=== PATIENT | female | born 1955 | race Hispanic/Latino ===

== ENCOUNTER 2022-04-24 05:07 | Observation (INO) | payer MEDICARE ==
[~2022-04-24] VITALS: Ht 154.9 cm; Wt 84.8 kg
[2022-04-24] MEDS ORDERED: ONDANSETRON HCL INJ 2MG/ML 2ML 2 MG/ML VIAL IV STA (06:02)
[2022-04-24] MEDS ORDERED: SODIUM CHLORIDE 0.9% 500ML 500 ML IV ONE (06:15)
[2022-04-24] MEDS ORDERED: ACETAMINOPHEN 325 MG TAB PO ONE (06:15)
[2022-04-24] MEDS ORDERED: ONDANSETRON HCL INJ 2MG/ML 2ML 2 MG/ML VIAL ONE (06:19)
[2022-04-24] MEDS ORDERED: SODIUM CHLORIDE 0.9% 500ML 500 ML ONE (06:19)
[2022-04-24] MEDS ORDERED: ACETAMINOPHEN 325 MG TAB ONE (06:19)
[2022-04-24] MEDS ORDERED: IOPAMIDOL 370 MG/ML 100 ML INFUS..BTL INJ ONE (06:37)
[2022-04-24] MEDS ORDERED: CEFTRIAXONE 1 GM VIAL ONE (07:20)
[2022-04-24] MEDS ORDERED: SODIUM CHLORIDE FLUSH 10 ML SYR INJ PRN (07:30)
[2022-04-24] MEDS ORDERED: ASPIRIN 81 MG CHEW TAB PO ONE (07:30)
[2022-04-24] MEDS ORDERED: ONDANSETRON HCL INJ 2MG/ML 2ML 2 MG/ML VIAL IV PRN (07:30)
[2022-04-24] MEDS ORDERED: ASPIRIN 325 MG TAB ONE (08:05)
[2022-04-24] MEDS ORDERED: ASPIRIN 325 MG TAB EC PO SCH (09:00)
[2022-04-24] MEDS: PROPRANOLOL HCL 10 MG TAB PO SCH ×3 (10:30→21:28)
[2022-04-24 10:47] LABS: CREATINE KINASE 49 IU/L (29-168)
[2022-04-24] MEDS ORDERED: SUCRALFATE1 GM PO (10:53)
[2022-04-24] MEDS ORDERED: LISINOPRIL-HCT1 EAC2 PO (10:53)
[2022-04-24] MEDS ORDERED: METOPROLOL SUCC50 MG PO (10:53)
[2022-04-24] MEDS ORDERED: FUROSEMIDE40 MG PO (10:53)
[2022-04-24] MEDS ORDERED: METFORMIN HCL1000 MG PO (10:53)
[2022-04-24] MEDS ORDERED: PANTOPRAZOLE SO40 MG PO (10:53)
[2022-04-24] MEDS ORDERED: FAMOTIDINE40 MG PO (10:53)
[2022-04-24] MEDS ORDERED: VITAMIN D PO (10:57)
[2022-04-24 11:34] LABS: INFLUENZAE A&B ANTIGEN (RAPID) NEGATIVE (NEGATIVE); RESPIRATORY SYNC. VIRUS NEGATIVE (NEGATIVE)
[2022-04-24] MEDS ORDERED: NOVOLOG100 UNITS1 (11:52)
[2022-04-24] MEDS ORDERED: ATORVASTATIN CA20 MG PO (11:52)
[2022-04-24] MEDS ORDERED: GABAPENTIN300 MG PO (11:52)
[2022-04-24] MEDS ORDERED: BASAGLAR K100 UNIT/1 (11:52)
[2022-04-24 12:06] VITALS: BP 124/69
[2022-04-24 12:48] VITALS: BP 124/69
[2022-04-24 12:59] VITALS: BP 124/69
[2022-04-24] MEDS ORDERED: BASAGLAR K100 UNIT/1 SQ (13:19)
[2022-04-24] MEDS ORDERED: NOVOLOG100 UNIT/1 SC (13:19)
[2022-04-24] MEDS ORDERED: DEXTROSE 50% SYRINGE 50 ML IV PRN (14:15)
[2022-04-24 15:48] VITALS: BP 115/68
[2022-04-24] MEDS: INSULIN LISPRO 100 UNIT/1 ML 3ML VIAL SQ SCH ×2 (17:04→21:31)
[2022-04-24 18:45] LABS: CREATINE KINASE 50 IU/L (29-168)
[2022-04-24 20:00] VITALS: BP 129/57
[2022-04-24 21:00] VITALS: BP 129/57
[2022-04-25] VITALS: BP 124/54
[2022-04-25 02:30] LABS: CHOL/HDL RATIO 3.3 (3.0-3.6); MAGNESIUM 1.2 MG/DL (1.3-2.1); PHOSPHORUS 2.5 MG/DL (2.3-4.7)
[2022-04-25 02:50] LABS: THYROID STIMULATING HORMONE 1.058 uIU/mL (0.350-4.940)
[2022-04-25 03:11] LABS: CREATINE KINASE 48 IU/L (29-168)
[2022-04-25 04:00] VITALS: BP 113/53
[2022-04-25 07:35] LABS: BASOPHILS # (AUTO) 0.1 (0.0-0.1); BASOPHILS % 1.8 % (0.0-1.0); EOSINOPHILS # (AUTO) 0.1 (0.0-0.4); HEMATOCRIT 30.9 % (34.2-44.1); HEMOGLOBIN 9.1 g/dL (12.0-16.0); LYMPHOCYTES # (AUTO) 0.9 (1.0-3.2); LYMPHOCYTES % 32.5 % (18.0-39.1); MEAN CORPUSCULAR HEMOGLOBIN 23.8 pg (28-32); MEAN CORPUSCULAR HGB CONC 29.4 g/dL (31-35); MEAN CORPUSCULAR VOLUME 80.7 fL (81-99); MONOCYTES # (AUTO) 0.3 (0.2-0.8); MONOCYTES % 11.3 % (4.4-11.3); NEUTROPHILS # (AUTO) 1.4 (2.1-6.9); NEUTROPHILS % 50.4 % (38.7-80.0); RED BLOOD COUNT 3.83 x10e6/uL (3.6-5.1); RED CELL DISTRIBUTION WIDTH 17.5 % (11.7-14.4)
[2022-04-25 07:50] LABS: ANION GAP 14.9 mmol/L (8-16); CALCIUM 8.9 mg/dL (8.4-10.2); CREATININE, SERUM 0.79 mg/dL (0.57-1.11); POTASSIUM 3.9 mmol/L (3.5-5.1)
[2022-04-25 07:55] LABS: PLATELET COUNT 64 x10e3/uL (140-360)
[2022-04-25 08:04] VITALS: BP 111/48
[2022-04-25] MEDS ORDERED: ACETAMINOPHEN 325 MG TAB PO PRN (08:15)
[2022-04-25] MEDS: PROPRANOLOL HCL 10 MG TAB PO SCH (08:26)
[2022-04-25] MEDS ORDERED: INSULIN GLARGINE 100 UNITS/ML VIAL SQ ONE (08:30)
[2022-04-25 08:34] VITALS: BP 111/48
[2022-04-25] MEDS: INSULIN LISPRO 100 UNIT/1 ML 3ML VIAL SQ SCH ×2 (08:34→11:52)
[2022-04-25] MEDS ORDERED: PANTOPRAZOLE SOD 40 MG TABEC PO SCH (09:00)
[2022-04-25] MEDS ORDERED: FUROSEMIDE 40 MG TAB PO SCH (09:00)
[2022-04-25] MEDS ORDERED: MAGNESIUM SULFATE 2GM/50ML 50 ML IV SCH (10:00)
[2022-04-25 10:52] LABS: CLARITY,URINE CLEAR (CLEAR); COLOR,URINE YELLOW (YELLOW)
[2022-04-25 10:53] LABS: LEUKOCYTE ESTERASE ,URINE NEGATIVE (NEGATIVE); NITRITE,URINE NEGATIVE (NEGATIVE); PROTEIN,URINE DIPSTICK 1+ (NEGATIVE)
[2022-04-25 10:54] LABS: KETONES,URINE NEGATIVE (NEGATIVE); URINE UROBILINOGEN 1 mg/dL (0.2 - 1)
[2022-04-25 11:01] LABS: BACTERIA,URINE FEW /HPF; EPITHELIAL CELLS,URINE FEW /LPF; RBC,URINE 0-5 /HPF (0-5); WBC,URINE (MAN) 0-5 /HPF (0-5)
[2022-04-25] MEDS ORDERED: MAGNESIUM OXIDE 400 MG TAB PO ONE (11:30)
[2022-04-25 11:56] VITALS: BP 112/52
[2022-04-25] MEDS ORDERED: ONDANSETRON HCL 4 MG ORAL DISINTEGRATING TAB PO PRN (13:00)
[2022-04-25] MEDS ORDERED: INSULIN GLARGINE 100 UNITS/ML VIAL SQ SCH (16:30)
[2022-04-25] MEDS ORDERED: ATORVASTATIN 20 MG TAB PO SCH (21:00)
== END 2022-04-25 14:00 | disposition home or self-care (01) ==
LOC: FSED 05:44 → ERHOLD 07:25 → MED/SURG3 11:57
PROVIDERS: ADMIT Internal Medicine; ATTEND Internal Medicine
DX: R07.89 Other chest pain (principal); R11.10 Vomiting, unspecified; K74.60 Unspecified cirrhosis of liver; K75.81 Nonalcoholic steatohepatitis (NASH); I25.10 Atherosclerotic heart disease of native coronary artery without angina pectoris; E11.9 Type 2 diabetes mellitus without complications; D61.818 Other pancytopenia; E66.01 Morbid (severe) obesity due to excess calories; K57.90 Diverticulosis of intestine, part unspecified, without perforation or abscess without bleeding; Z20.822 Contact with and (suspected) exposure to COVID-19; Z68.35 Body mass index [BMI] 35.0-35.9, adult; Z79.84 Long term (current) use of oral hypoglycemic drugs; Z90.49 Acquired absence of other specified parts of digestive tract; Z95.5 Presence of coronary angioplasty implant and graft; Z90.710 Acquired absence of both cervix and uterus; Z88.6 Allergy status to analgesic agent; Z88.2 Allergy status to sulfonamides; Z88.8 Allergy status to other drugs, medicaments and biological substances; Z82.49 Family history of ischemic heart disease and other diseases of the circulatory system
CPT/HCPCS: 0223U; 36415; 70450; 71260; 74177; 80048; 80053; 80061; 81001; 81003; 82140; 82550 ×2; 82553 ×2; 82607; 82746; 82948 ×2; 83540; 83690; 83735; 84100; 84443; 84466; 84484 ×2; 85025 ×2; 87400; 87420; 93005; 94799 ×2; 96374; 99284; G0378 ×2; J0696; J1815; J2405; J3475; J7040; Q9967; S0164